=== PATIENT | female | born 1975 ===

== ENCOUNTER 2017-07-18 14:34 | Emergency (ER) | payer SELFPAY ==
[2017-07-18 15:44] VITALS: BP 109/65
[2017-07-18 16:57] LABS: Hematocrit 38.6 % (30.3-42.9); Hemoglobin 12.4 gm/dl (10.1-14.3); Mean Corpuscular HGB Conc 32 % (30-34); Mean Corpuscular Volume 71 fl (79-97); Platelet Count 150 K/mm3 (140-440); Red Blood Count 5.48 M/mm3 (3.65-5.03); Red Cell Distribution Width 14.2 % (13.2-15.2)
[2017-07-18 17:01] LABS: Mean Corpuscular Hemoglobin 23 pg (28-32)
[2017-07-18 17:06] LABS: Alanine Aminotransferase 16 units/L (7-56); BUN/Creatinine Ratio 10; Blood Urea Nitrogen 6 mg/dL (7-17); Calcium 9.1 mg/dL (8.4-10.2); Hemolysis Index 1
[2017-07-18 17:50] LABS: Basophils % (Manual) 0 % (0.0-1.8); Total Cells Counted 100
[2017-07-18 17:51] LABS: Anisocytosis 1+; Hypochromasia 1+; Large Platelets 1+; Ovalocytes 1+; Platelet Estimate Consistent w Auto
== END 2017-07-18 16:55 | disposition left against medical advice (07) ==
LOC: ED 14:34
DX: R42 Dizziness and giddiness (principal); Z53.21 Procedure and treatment not carried out due to patient leaving prior to being seen by health care provider
CPT/HCPCS: 36415; 80053; 82962; 85007; 85025